=== PATIENT | female | born 1950 | race Caucasian/White ===

== ENCOUNTER 2022-03-06 00:55 | Emergency (ER) | payer MEDICAID ==
[~2022-03-06] VITALS: Ht 162.6 cm; Wt 90.0 kg
[2022-03-06] MEDS ORDERED: TETANUS, DIPHTHERIA, PERTUSSIS VAC/PF 0.5ML (>10YR OLD) IM ONE (01:30)
[2022-03-06] MEDS ORDERED: IBUPROFEN 600MG TABLET PO ONE (03:45)
[2022-03-06 04:36] VITALS: BP 152/78
== END 2022-03-06 04:39 | disposition home or self-care (01) ==
LOC: ER 00:55
DX: S00.83XA Contusion of other part of head, initial encounter (principal); E04.1 Nontoxic single thyroid nodule; I10 Essential (primary) hypertension; W01.0XXA Fall on same level from slipping, tripping and stumbling without subsequent striking against object, initial encounter; Y93.9 Activity, unspecified; Y92.9 Unspecified place or not applicable
CPT/HCPCS: 12011; 70486; 71045; 72170; 90471; 90715; 99284